=== PATIENT | male | born 1985 | race Caucasian/White ===

== ENCOUNTER 2021-09-14 09:32 | Day surgery (SDC) | payer OTHER ==
[~2021-09-14 09:32] MED LIST: propofoL 100 ML ONE
[2021-09-14] MEDS ORDERED: Lactated Ringers 1,000 ML IV SCH ×2 (10:00→13:15)
[2021-09-14] MEDS ORDERED: Lidocaine 2% 5 ML SDV ONE (10:47)
[2021-09-14] MEDS ORDERED: Ondansetron 4 MG/2 ML SDV ONE (10:47)
[2021-09-14] MEDS ORDERED: fentaNYL 100 MCG/2 ML SDV ONE (10:55)
--- NOTE | 2021-09-14 11:21 | PCM.PREANE ---
Preanesthetic Assessment - Anesthesia/Transfusion/Family Hx Anesthesia History: Prior Anesthesia Without Reaction Transfusion History: No Prior Transfusion(s) - Review of Systems General: No Symptoms Pulmonary: No Symptoms Cardiovascular: No Symptoms Gastrointestinal: No Symptoms Neurological: No Symptoms Other: Reports: None - Physical Assessment NPO Status Date: 09/14/21 NPO Status Time: 00:00 Vital Signs: Last Vital Signs Temp 97.5 F 09/14/21 10:48 Pulse 74 09/14/21 10:48 Resp 14 09/14/21 10:48 BP 139/92 H 09/14/21 10:48 Pulse Ox 98 09/14/21 10:48 Height: 6 ft 1 in Weight: 226 lb ASA Class: 2 Mental Status: Alert & Oriented x3 Airway Class: Mallampati = 2 Dentition: Reports: Normal Dentition Thyro-Mental Finger Breadths: 3 Mouth Opening Finger Breadths: 3 ROM/Head Extension: Full Lungs: Clear to Auscultation, Normal Respiratory Effort Cardiovascular: Regular Rate, Regular Rhythm - Lab Values: Laboratory Last Values SARS-CoV-2 RNA (IRINEO) NEGATIVE (NEGATIVE) 09/14/21 09:25 - Allergies Allergies/Adverse Reactions: Allergies Allergy/AdvReac Type Severity Reaction Status Date / Time No Known Allergies Allergy Verified 09/08/21 11:41 - Acknowledgements Anesthesia Type Planned: General Anesthesia Pt an Appropriate Candidate for the Planned Anesthesia: Yes Alternatives and Risks of Anesthesia Discussed w Pt/Guardian: Yes Pt/Guardian Understands and Agrees with Anesthesia Plan: Yes PreAnesthesia Questionnaire HEENT History: Reports: None Cardiovascular History: Reports: Hypertension Gastrointestinal History: Reports: Irritable Bowel Syndrome, Other (See Below) Other Gastrointestinal History: occasional heartburn Genitourinary History: Reports: None Musculoskeletal History: Reports: None Neurological History: Reports: None Psychiatric History: Reports: None Endocrine/Metabolic History: Reports: None Hematologic History: Reports: None Immunologic History: Reports: None Oncologic (Cancer) History: Reports: None Dermatologic History: Reports: None - Past Surgical History Head Surgeries/Procedures: Reports: None HEENT Surgical History: Reports: Oral Surgery Other HEENT Surgeries/Procedures: wisdom teeth extraction Cardiovascular Surgical History: Reports: None Respiratory Surgical History: Reports: None GI Surgical History: Reports: None Male Surgical History: Reports: None Endocrine Surgical History: Reports: None Neurological Surgical History: Reports: None Musculoskeletal Surgical History: Reports: None Oncologic Surgical History: Reports: None Dermatological Surgical History: Reports: None - SUBSTANCE USE Tobacco Use Status *Q: Current Every Day Tobacco User Tobacco Use Within Last Twelve Months: Cigarettes - HOME MEDS Home Medications: Home Meds Losartan Potassium 100 mg PO DAILY 09/08/21 [History] amLODIPine Besylate [Amlodipine Besylate] 10 mg PO DAILY 09/08/21 [History] hydroCHLOROthiazide [Hydrochlorothiazide] 25 mg PO DAILY 09/08/21 [History] - CURRENT (IN HOUSE) MEDS Current Meds: Current Medications Lactated Ringer's (Ringers, Lactated) 1,000 mls @ 125 mls/hr IV ASDIRECTED JOSE ALEJANDRO Last Admin: 09/14/21 10:52 Dose: 125 mls/hr Documented by: Discontinued Medications Fentanyl (Fentanyl 100 Mcg/2 Ml Sdv) Confirm Administered Dose 100 mcg .ROUTE .STK-MED ONE Stop: 09/14/21 10:56 Propofol (Diprivan 100 Ml) Confirm Administered Dose 100 mls @ as directed .ROUTE .STK-MED ONE Stop: 09/14/21 08:56 Lidocaine (Lidocaine 2% 5 Ml Sdv) Confirm Administered Dose 5 ml .ROUTE .STK-MED ONE Stop: 09/14/21 10:48 Ondansetron HCl (Ondansetron 4 Mg/2 Ml Sdv) Confirm Administered Dose 4 mg .ROUTE .STK-MED ONE Stop: 09/14/21 10:48
--- NOTE | 2021-09-14 13:09 | PCM48HPAN ---
Post Anesthesia Note - EVALUATION WITHIN 48HRS OF ANESTHETIC Vital Signs in Normal Range: Yes Patient Participated in Evaluation: Yes Respiratory Function Stable: Yes Airway Patent: Yes Cardiovascular Function Stable: Yes Hydration Status Stable: Yes Pain Control Satisfactory: Yes Nausea and Vomiting Control Satisfactory: Yes Mental Status Recovered: Yes Vital Signs: Last Vital Signs Temp 97.5 F 09/14/21 10:48 Pulse 74 09/14/21 10:48 Resp 14 09/14/21 10:48 BP 139/92 H 09/14/21 10:48 Pulse Ox 98 09/14/21 10:48
--- NOTE | 2021-09-14 13:09 | PCM.POSTAN ---
POST ANESTHESIA ASSESSMENT - MENTAL STATUS Mental Status: Alert, Oriented - VITAL SIGNS Vital Signs: Last Vital Signs Temp 97.5 F 09/14/21 10:48 Pulse 74 09/14/21 10:48 Resp 14 09/14/21 10:48 BP 139/92 H 09/14/21 10:48 Pulse Ox 98 09/14/21 10:48 - RESPIRATORY Respiratory Status: Respiratory Rate WNL, Airway Patent, O2 Saturation Stable - CARDIOVASCULAR CV Status: Pulse Rate WNL, Blood Pressure Stable - GASTROINTESTINAL GI Status: No Symptoms - POST OP HYDRATION Hydration Status: Adequate & Stable
--- NOTE | 2021-09-14 13:12 | PCM.OPNOTE ---
- General Post-Op/Procedure Note Date of Surgery/Procedure: 09/14/21 Operative Procedure(s): Esophagogastroduodenoscopy with duodenal, gastric and esophageal biopsies. Colonoscopy with cold rectal polypectomy. Pre Op Diagnosis: Progressive heartburn. Rectal bleeding. Abdominal pain. Post-Op Diagnosis: Mild to moderate duodenitis, gastritis and esophagitis. Rectal polyp. Anesthesia Technique: MAC (ASA II) Primary Surgeon: Jason Bateman Condition: Good Free Text/Narrative:: DICTATION [id number] CPT CODE [id number]
--- NOTE | 2021-09-14 13:26 | OR ---
SURGEON: Jason Bateman M.D. DATE OF PROCEDURE: 09/14/2021 OPERATION PERFORMED: Esophagogastroduodenoscopy with biopsy. PRIMARY SURGEON: Jason Bateman M.D. ANESTHESIA: MAC. ASA CLASSIFICATION: II. PREOPERATIVE DIAGNOSES: 1. Progressive heartburn. 2. Abdominal pain. POSTOPERATIVE DIAGNOSES: 1. Mild to moderate duodenitis. 2. Mild to moderate gastritis. 3. Esophagitis. DESCRIPTION OF PROCEDURE: The patient was taken to the endoscopy room and positioned on the endoscopy table in the left lateral decubitus position. Time-out was called for appropriate identification of the patient and procedure. Monitored anesthesia care was provided. The bite block was placed between the patient's teeth and secured. The gastroscope was inserted through the bite block into the oropharynx and advanced without difficulty through the esophagus and stomach into the duodenum where examination was now carried out in a retrograde fashion. The duodenum does show some acute inflammatory changes and biopsies of the duodenum were obtained secondary to that. The gastroscope was withdrawn to the stomach which also shows a mild to moderate gastritis. Antral biopsies were obtained to look for the presence of Helicobacter pylori. The gastroscope was then retroflexed to visualize the proximal stomach. No acute hiatal hernia was noted, and there were no ulcers or polyps in the proximal stomach. The gastroscope was then straightened and slowly withdrawn to the GE junction, which again showed some mild inflammatory changes. Separate biopsies of the GE junction were obtained although I did not see significant columnarization. The esophagus itself demonstrated good contractility. No mid or proximal lesions were identified. The vocal cords were briefly visualized as the scope was withdrawn and noted to move symmetrically. The gastroscope was then removed with the patient having tolerated this portion of the procedure well. Following colonoscopy, he was taken to recovery room in stable condition. ROSARIO / MABLE /[id number]
--- NOTE | 2021-09-14 13:35 | OR ---
SURGEON: Jason Bateman M.D. DATE OF PROCEDURE: 09/14/2021 OPERATION PERFORMED: Colonoscopy with cold rectal polypectomy. PRIMARY SURGEON: Jason Bateman M.D. ANESTHESIA: MAC. ASA CLASSIFICATION: II. PREOPERATIVE DIAGNOSES: 1. Abdominal pain. 2. Rectal bleeding. POSTOPERATIVE DIAGNOSIS: Small rectal polyp. DESCRIPTION OF PROCEDURE: With the patient having completed upper GI endoscopy, he was maintained in the left lateral decubitus position. The colonoscope was inserted into the rectum and advanced with moderate difficulty to the cecum. The cecum was identified by internal landmarks and external pressure. The colonoscope was retroflexed to visualize the ascending colon from below, then straightened and slowly withdrawn. The cecum, ascending colon, hepatic flexure, transverse colon, splenic flexure, descending colon, and sigmoid colon showed no tumors, polyps, diverticula, or angiodysplasia. There was no evidence of inflammatory bowel disease. The colonoscope was withdrawn to the rectum where a small polyp was encountered and removed with the cold biopsy forceps. No significant bleeding was noted. The colonoscope was retroflexed to visualize the anal orifice from above. Again, no tumors or polyps were seen and no acute hemorrhoidal changes were noted. The colonoscope was then straightened, the rectum aspirated, and the colonoscope removed. The patient tolerated the procedure well and was taken to recovery room in stable condition. ROSARIO AKINS /[id number]
== END 2021-09-14 13:50 | disposition home or self-care (01) ==
LOC: MW.SDS 09:32
PROVIDERS: ATTEND Surgery
DX: K62.1 Rectal polyp (principal); K29.90 Gastroduodenitis, unspecified, without bleeding; K22.70 Barrett's esophagus without dysplasia; K20.90 Esophagitis, unspecified without bleeding; K31.89 Other diseases of stomach and duodenum; I78.1 Nevus, non-neoplastic; F17.210 Nicotine dependence, cigarettes, uncomplicated; I10 Essential (primary) hypertension; F32.A Depression, unspecified; Z79.899 Other long term (current) drug therapy; Z98.890 Other specified postprocedural states; Z01.812 Encounter for preprocedural laboratory examination; Z20.822 Contact with and (suspected) exposure to COVID-19
CPT/HCPCS: 43239; 45380; 87635; J2405; J2704; J3010; J7120; 00813; U0002